=== PATIENT | female | born 1960 | race Caucasian/White ===

== ENCOUNTER 2024-01-08 11:56 | Inpatient (IN) | payer MEDICARE, SELFPAY ==
[2024-01-08] VITALS (7 sets, daily range): BP systolic 136–153; BP diastolic 70–99; PULSE 69–97; RESP 16–20; TEMP 36.3–37.1; O2SAT 93–97; BMI 36.7
[2024-01-08] MEDS: NICOTINE 14 mg PATCH 1 PATCH TRANSDERMA (13:45)
[2024-01-08] MEDS: ACETAMINOPHEN 325 MG TABLET 975 MG PO (13:45)
[2024-01-08] MEDS: cefTRIAXone 1 GM in 0.9 % SODIUM CHLORIDE Mini-bag 100 ML IVPB (13:45)
[2024-01-08] MEDS: 0.9 % SODIUM CHLORIDE 1000 ml 1,000 ML 500 ML IV (13:46)
--- NOTE | 2024-01-08 14:22 | PC.NURSE ---
Shift Summary: Patient arrived to floor around noon. Independent, alert and oriented. Vitals WNL. Rates lower abdominal pain 6/10, managed with positioning and PRN medication see MAR. New IV placed in right forearm, nicotine patch left upper outer arm.
[2024-01-08] MEDS: metroNIDAZOLE 500 MG/100 ML PIGGYBACK 100 MG IVPB ×2 (14:35→21:50)
[2024-01-08 14:44] LABS: Lactate* 0.9 mmol/L (0.5-1.9)
--- NOTE | 2024-01-08 14:44 | P.IMHP_ITS ---
Hospitalist- H&P: MIK History of Present Illness Date Seen: 01/08/24 Chief complaint: direct admit for perforated diverticlitis Narrative: Geetha Brambila is a 63 year old female with past medical history of COPD, ovarian cancer status post LOUANN/BSO, depression and current active smoker who presents as a direct admit from the clinic due to lower abdominal pain that started on January 04, and has been worsening. At the clinic, CT scan of abdomen and pelvis with contrast showed a contained small bowel perforation. Patient states that she does not have history of diverticulosis or any previous abdominal pain (except when she went through her ovarian cancer treatment 28 years ago). Her PCP suggested giving her magnesium citrate as at that time they felt it was constipation and or bloating. Patient states that she did not have any vomitus, she only was nauseated when she was drinking her magnesium citrate. Patient denied fever, but she had chills overnight. She denies headache, chest pain, any changes in her bowel movements away from her baseline which is more or less 1 bowel movement every day. She states that she has shortness of breath at baseline, as she is a current active smoker. Pt is hemodynamically stable, Labs from [facility] shows an elevated white blood cells at 14. Gen Sx consulted and pt is admitted for IV Antibiotics and further evaluation & management. Review of Systems Status of ROS: Reports: 10 or more systems reviewed and unremarkable except as noted in History and below Narrative: stress incontinence. [facility] Medical History (Updated 01/08/24 @ 16:17 by Carolyn Mcrae MD) Hepatic steatosis ?K76.0 - Fatty (change of) liver, not elsewhere classified (ICD-10) FH: cholecystectomy ?Z83.79 - Family history of other diseases of the digestive system (ICD-10) Stress incontinence ?N39.3 - Stress incontinence (female) (male) (ICD-10) Tobacco use disorder ?F17.200 - Nicotine dependence, unspecified, uncomplicated (ICD-10) Family history of malignant neoplasm ?Z80.9 - Family history of malignant neoplasm, unspecified (ICD-10) Depression ?F32.A - Depression, unspecified (ICD-10) Ovarian cancer ?C56.9 - Malignant neoplasm of unspecified ovary (ICD-10) COPD (chronic obstructive pulmonary disease) ?J44.9 - Chronic obstructive pulmonary disease, unspecified (ICD-10) Surgical History (Updated 01/08/24 @ 15:59 by Kathleen De Paz MD) S/P laparoscopic cholecystectomy ?Z90.49 - Acquired absence of other specified parts of digestive tract (ICD- 10) S/P LOUANN-BSO ?Z90.710 - Acquired absence of both cervix and uterus (ICD-10) ?Z90.722 - Acquired absence of ovaries, bilateral (ICD-10) ?Z90.79 - Acquired absence of other genital organ(s) (ICD-10) Social History What is your current living situation?: I presently have a place to live Problems where you live: no known problems Problems where you live details: N/A In the past 12 months, utilities in danger of being shut off: no In past 12 months, lack of transportation kept you from medical appts, meetings, work, or getting things needed for daily living: no In the past 12 mos, have been you worried that your food would run out before you had money to buy more?: never true In the past 12 mos, the food you bought just didn't last and you didn't have money to buy more?: never true Highest level of school completed/degree received: high school graduate Smoking Status: Current every day smoker What tobacco products do you use: cigarettes How often do you have a drink containing alcohol: monthly or less Alcohol type: wine and hard liquor AUDIT-C Alcohol total score: 1 Non-prescribed substance use: denies use Caffeine: Yes How often does anyone, including family, friends and others, physically hurt you : never How often does anyone, including family, friends and others, insult or talk down to you: never How often does anyone, including family, friends and others, threaten you with harm: never How often does anyone, including family, friends and others, scream or curse at you: never service: No Meds Home Medications and Allergies Home Medications ?Medication ?Instructions ?Recorded ?Confirmed ?Type albuterol 90 mcg/actuation aerosol mcg inhalation 01/08/24 History inhaler citalopram 20 mg tablet 20 mg PO DAILY 01/08/24 01/08/24 History fluticasone 500 mcg-salmeterol 50 inhalation BID 01/08/24 History mcg/dose blistr powdr for inhalation (Advair Diskus) Exam Narrative: Exam Narrative: Physical exam GENERAL: Comfortable, no acute distress. HEAD AND NECK: Atraumatic, normocephalic CARDIOVASCULAR: RRR. Normal S1, S2. No murmurs. RESPIRATORY: Diffuse wheezes B/L. Decreased air entry B/L. GASTROINTESTINAL: Not distended, tender to palpation mainly lower abdomen, no rigidity or guarding. NEUROLOGY: Alert, awake, oriented X 3. Normal speech. No focal weakness. PSYCH: Normal mood, normal affect. Const: Vital Signs, click to edit/add: Vital Signs - 24 hr 01/08/24 12:10 Temperature 98.2 F Pulse Rate [Left P ulse Oximeter] 97 Respiratory Rate 16 Blood Pressure [Le ft Arm] 153/99 H Pulse Oximetry 94 Oxygen Delivery Me thod Room Air Hospitalist - H&P: Result Imaging CT scan - abdomen: Radiologist's impression: CT of the abdomen and pelvis was performed following the administration of 100 mL Omnipaque 350. ? Comparison: None available. ? Findings: Visualized lung bases: Clear. Liver: Diffuse hepatic steatosis with a too small to characterize hypodensity along the falciform ligament and within the right hepatic lobe. Post cholec ystectomy. Mild intrahepatic and extrahepatic biliary ductal dilation. Pancreas: Unremarkable. Spleen: Mild nodular thickening of the left adrenal gland. Right adrenal gland is normal. Adrenals: Unremarkable. Kidneys: Unremarkable. No nephrolithiasis or hydronephrosis. Aorta/IVC: Moderate atherosclerotic aortic calcifications without aneurysmal dilation. Lymph nodes: No lymphadenopathy by size criteria. Bowel: Nonobstructed bowel. Bowel wall thickening and inflammatory stranding involving the sigmoid colon. There appears to be a small amount extra luminal gas along the posterior margin of the sigmoid colon (series 2 images 165-170). No organized fluid collection is identified to suggest abscess. Elsewhere, no localized inflammatory changes are seen. The appendix is not definitively visual ized. 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 Pelvis: The uterus is surgically absent. Inflammatory stranding of the sigmoid colon abuts the vaginal cuff. The bladder is decompressed.. Bones/body wall: Multilevel degenerative disc disease. ? Impression: 1. Acute sigmoid diverticulitis with small foci of extra luminal gas concerning for contained perforation. No discrete abscess is identified. 2. Post cholecystectomy. Mild intrahepatic and extrahepatic biliary ductal dilation, which may be secondary to reservoir effect status post cholecyst ectomy. Alternatively, there is a 2.3 cm intramural lipoma in the periampullary region of the duodenum, which may be resulting in mass effect. Recommend correlation with liver function tests and consider further evaluation with MRCP as indicated. 3. Hepatic steatosis. ? ? Assessment and Plan Assessment and plan (1) Acute diverticulitis: Status: Acute Assessment and Plan: -Acute sigmoid diverticulitis with small foci of extra luminal gas concerning for contained perforation. No discrete abscess is identified. -started ceftriaxone and metronidazole IV. 1 L bolus of normal saline. -ordered lactic acid. -General surgery were consulted, appreciate recommendations (2) COPD (chronic obstructive pulmonary disease): Status: Acute Assessment and Plan: Patient is an active smoker Prior examination she has diffuse wheezing bilaterally She states that she does not have history of frequent ED/hospital visits or admissions for exacerbation of her COPD. ordered DuoNebs are (3) Elevated blood pressure reading without diagnosis of hypertension: Status: Acute Assessment and Plan: Patient does not check her blood pressure at home We will monitor with the (4) Tobacco use disorder: Status: Acute Assessment and Plan: Order nicotine patch Counseled patient on quitting smoking (5) Depression: Status: Acute Assessment and Plan: On citalopram 20 mg daily (6) Stress incontinence: Status: Acute Assessment and Plan: History of total abdominal hysterectomy Not on treatment for her incontinence (7) Duodenal mass: Status: Acute Assessment and Plan: Incidental finding on her abdomen/pelvis CT. 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 Recommend correlation with liver function tests and consider further evaluation with MRCP as indicated. Ordered liver function tests, Pt will need to follow-up with MRCP as an outpatient, surgeon aware. (8) Hepatic steatosis: Status: Acute Plan As above Total Time Spent Total Time Spent: ?Today I spent 75 minutes seeing the patient, discussing the patient with clinic staff, reviewing Expanse and EPIC notes/diagnostics, discussing the care plan with our care time that includes , pharmacy, RT, Gen Sx and documenting my impressions and plan in the medical record.
[2024-01-08 14:47] LABS: Basophils Percent Auto 0.2 % (0.0-3.0); Eosinophils Percent Auto 0.7 % (0.0-7.0); Hematocrit 42.6 % (33.0-51.0); Hemoglobin* 13.9 gm/dL (12.0-16.0); Immature Granulocytes Pct Auto 0.2 %; Lymphocytes Percent Auto 13.9 % (20-44); Mean Corpuscular HGB Conc 33 gm/dL (32-36); Mean Corpuscular Hemoglobin 31 pg (26-34); Mean Corpuscular Volume 94 fL (80-100); Platelet Count* 203 K/uL (140-440); RDW Coefficient of Variation % 13.1 % (11.5-15.5); Red Blood Count 4.52 m/uL (4.00-5.20); Slide Review Reflex No; White Blood Count* 12.92 K/uL (4.50-11.00)
[2024-01-08 15:32] LABS: Albumin* 3.8 g/dL (3.3-5.0); Chloride* 103 mmol/L (96-114); Sodium* 134 mmol/L (135-149)
[2024-01-08 15:33] LABS: Potassium* 3.7 mmol/L (3.6-5.1)
[2024-01-08 15:35] LABS: Alkaline Phosphatase* 81 U/L (40-150); Anion Gap 5 mEq/L (7-15); Aspartate Amino Transferase* 21 U/L (12-35); Carbon Dioxide* 26 mmol/L (20-32); Creatinine* 0.6 mg/dL (0.5-1.5); Est. Creatinine Clearance* 48.43; Estimated Glomerular Filt Rate 100 ml/min; Total Protein* 6.7 g/dL (6.0-8.3)
[2024-01-08 15:36] LABS: Alanine Aminotransferase* 24 U/L (4-35); Blood Urea Nitrogen* 11 mg/dL (7-30); Calcium* 8.5 mg/dL (8.4-10.6); Glucose* 82 mg/dL (60-115); Lipase* 19 U/L (23-300)
[2024-01-08 15:49] LABS: C Reactive Protein* 22.7 mg/dL (0.5-1.0)
--- NOTE | 2024-01-08 15:56 | PM.GSCN ---
History of Present Illness Consult details Date Seen: 01/08/24 Consult date: 01/08/24 Narrative: 63-year-old female presented to clinic today with persistent suprapubic abdominal pain and I was asked by Loren SANCHEZ to see her in consultation. Patient states that she developed left lower quadrant/suprapubic abdominal pain 2 days ago. Four days prior to this pain she had multiple episodes of diarrhea. When the pain started, it was severe and patient came to clinic on Friday to be seen. She was thought to have constipation and was placed on MiraLax and magnesium citrate. Patient continued to have multiple stools but the pain did not resolve. She then re-presented to clinic today. Patient denies any fevers. She denied nausea or vomiting. She was passing gas. I reviewed her record at [facility]. Patient was found to have an elevated WBC of 14. An abdominal CT was obtained that showed small focus of extraluminal air adjacent to sigmoid colon consistent with contained perforated sigmoid diverticulitis. Review of Systems Narrative: General: no fevers HENT: no problems swallowing CV: no shortness of breath Resp: no cough GI: No nausea, vomiting, abdominal pain : no dysuria, no increased urinary frequency, no hematuria Skin: no new rashes Musculoskeletal: no back pain Neuro: no muscle weakness Psyche: no depression, no anxiety PFSH [facility] Medical History (Updated 01/08/24 @ 15:41 by Carolyn Mcrae MD) Stress incontinence ?N39.3 - Stress incontinence (female) (male) (ICD-10) Tobacco use disorder ?F17.200 - Nicotine dependence, unspecified, uncomplicated (ICD-10) Family history of malignant neoplasm ?Z80.9 - Family history of malignant neoplasm, unspecified (ICD-10) Depression ?F32.A - Depression, unspecified (ICD-10) Ovarian cancer ?C56.9 - Malignant neoplasm of unspecified ovary (ICD-10) COPD (chronic obstructive pulmonary disease) ?J44.9 - Chronic obstructive pulmonary disease, unspecified (ICD-10) Surgical History (Updated 01/08/24 @ 15:59 by Kathleen De Paz MD) S/P laparoscopic cholecystectomy ?Z90.49 - Acquired absence of other specified parts of digestive tract (ICD-10) S/P LOUANN-BSO ?Z90.710 - Acquired absence of both cervix and uterus (ICD-10) ?Z90.722 - Acquired absence of ovaries, bilateral (ICD-10) ?Z90.79 - Acquired absence of other genital organ(s) (ICD-10) Social History What is your current living situation?: I presently have a place to live Problems where you live: no known problems Problems where you live details: N/A In the past 12 months, utilities in danger of being shut off: no In past 12 months, lack of transportation kept you from medical appts, meetings, work, or getting things needed for daily living: no In the past 12 mos, have been you worried that your food would run out before you had money to buy more?: never true In the past 12 mos, the food you bought just didn't last and you didn't have money to buy more?: never true Highest level of school completed/degree received: high school graduate Smoking Status: Current every day smoker What tobacco products do you use: cigarettes How often do you have a drink containing alcohol: monthly or less Alcohol type: wine and hard liquor AUDIT-C Alcohol total score: 1 Non-prescribed substance use: denies use Caffeine: Yes How often does anyone, including family, friends and others, physically hurt you: never How often does anyone, including family, friends and others, insult or talk down to you: never How often does anyone, including family, friends and others, threaten you with harm: never How often does anyone, including family, friends and others, scream or curse at you: never service: No Meds Home Medications and Allergies Home Medications ?Medication ?Instructions ?Recorded ?Confirmed ?Type albuterol 90 mcg/actuation aerosol mcg inhalation 01/08/24 History inhaler citalopram 20 mg tablet 20 mg PO DAILY 01/08/24 01/08/24 History fluticasone 500 mcg-salmeterol 50 inhalation BID 01/08/24 History mcg/dose blistr powdr for inhalation (Advair Diskus) Exam Narrative: Exam Narrative: General appearance: Alert, cooperative, and in no distress Pulmonary: Chest symmetric, lungs clear bilaterally Cardiovascular Heart: Regular rate and rhythm, S1, S2, no murmurs/rubs/gallops Gastrointestinal Abdominal: soft, not distended, tender to palpation suprapubically and in bilateral lower quadrants, not tender to percussion suprapubically. Skin: Normal skin color, texture, and turgor. No rashes or lesions. Psychiatric: Alert, cooperative, normal affect. Const: Vital Signs, click to edit/add: Vital Signs - 24 hr 01/08/24 12:10 Temperature 98.2 F Pulse Rate [Left P ulse Oximeter] 97 Respiratory Rate 16 Blood Pressure [Le ft Arm] 153/99 H Pulse Oximetry 94 Oxygen Delivery Me thod Room Air Results Labs Labs: Abnormal lab results 01/08/24 Range/Units 14:26 WBC 12.92 H (4.50-11.00) K/uL Neut % (Auto) 76.0 H (42.0-72.0) % Lymph % (Auto) 13.9 L (20-44) % Neut # (Auto) 9.80 H (1.7-7.0) K/uL Johnson # (Auto) 1.20 H (0.00-0.90) K/UL Sodium 134 L (135-149) mmol/L Anion Gap 5 L (7-15) mEq/L C-Reactive Protein 22.7 H (0.5-1.0) mg/dL Lipase 19 L (23-300) U/L Diabetes panel 01/08/24 Range/Units 14:26 Sodium 134 L (135-149) mmol/L Potassium 3.7 (3.6-5.1) mmol/L Chloride 103 (96-114) mmol/L Carbon Dioxide 26 (20-32) mmol/L BUN 11 (7-30) mg/dL Creatinine 0.6 (0.5-1.5) mg/dL Glucose 82 (60-115) mg/dL Calcium 8.5 (8.4-10.6) mg/dL AST 21 (12-35) U/L ALT 24 (4-35) U/L Alkaline Phosphatase 81 (40-150) U/L Total Protein 6.7 (6.0-8.3) g/dL Albumin 3.8 (3.3-5.0) g/dL Calcium panel 01/08/24 Range/Units 14:26 Calcium 8.5 (8.4-10.6) mg/dL Albumin 3.8 (3.3-5.0) g/dL Pituitary panel 01/08/24 Range/Units 14:26 Sodium 134 L (135-149) mmol/L Potassium 3.7 (3.6-5.1) mmol/L Chloride 103 (96-114) mmol/L Carbon Dioxide 26 (20-32) mmol/L BUN 11 (7-30) mg/dL Creatinine 0.6 (0.5-1.5) mg/dL Glucose 82 (60-115) mg/dL Calcium 8.5 (8.4-10.6) mg/dL Adrenal panel 01/08/24 Range/Units 14:26 Sodium 134 L (135-149) mmol/L Potassium 3.7 (3.6-5.1) mmol/L Chloride 103 (96-114) mmol/L Carbon Dioxide 26 (20-32) mmol/L BUN 11 (7-30) mg/dL Creatinine 0.6 (0.5-1.5) mg/dL Glucose 82 (60-115) mg/dL Calcium 8.5 (8.4-10.6) mg/dL Total Bilirubin 1.0 (0.1-1.5) mg/dL AST 21 (12-35) U/L ALT 24 (4-35) U/L Alkaline Phosphatase 81 (40-150) U/L Total Protein 6.7 (6.0-8.3) g/dL Albumin 3.8 (3.3-5.0) g/dL All other labs normal. Progress Note:A&P Assessment and plan (1) Acute diverticulitis: Status: Acute Plan 63-year-old female admitted to the hospital with complicated sigmoid diverticulitis with micro perforation. I discussed with the patient her CT findings and her laboratory findings. Patient has small focus of air adjacent to sigmoid colon consistent with contained perforation. She does not have peritoneal signs and overall looks well. Will give her IV antibiotics and she can have clear liquid diet if she desires. Patient has not been eating for the past 2 days. Will trend her WBC and treat her conservatively for now. Patient was also found to have a thickening near ampulla. Patient is s/p cholecystectomy. This could be worked up as outpatient with liver function tests and MRCP.
[2024-01-08 16:43] LABS: Erythrocyte SedimentationRate* 7 mm/hr (2-20)
--- NOTE | 2024-01-08 19:54 | PC.NURSE ---
End of shift - RN took over pt care at approximately 1500. Pt alert, oriented, cooperative and pleasant. Up independently in room. Reported pain in lower abdomen as 5/10 and reported that pain level as tolerable. Managed with medication per MAR with pt reporting comfort. Tolerating clear liquid diet and fluids. Reported poor appetite for several days, but stated that she was feeling hungry today and noted that her loose stools had slowed down. Family at bedside, appears to be resting comfortably at end of shift with call light within reach.
[2024-01-08] MEDS: OXYCODONE 5 MG TABLET PO (21:11)
[2024-01-08] MEDS: SODIUM CHLORIDE 0.9 % (FLUSH) 10 ML SYRINGE 5 ML IVF (21:49)
[2024-01-09] VITALS (9 sets, daily range): BP systolic 135–181; BP diastolic 73–100; PULSE 69–79; RESP 16–20; TEMP 36.2–36.8; O2SAT 94–96
[2024-01-09] MEDS: metroNIDAZOLE 500 MG/100 ML PIGGYBACK 100 MG IVPB ×3 (05:49→21:21)
[2024-01-09] MEDS: SODIUM CHLORIDE 0.9 % (FLUSH) 10 ML SYRINGE 5 ML IVF ×3 (05:50→21:21)
--- NOTE | 2024-01-09 06:19 | PC.NURSE ---
End of shift note [id number]: Pt alert & oriented x 4 and able to make needs known. She transfers/ambulates independently in room. Previous IV to R forearm infiltrated last evening so publications writer placed new IV to L AC which is patent and SL. Pt refused ice to R arm when approached. PRN Oxycodone given last evening for c/o 8/10 abdominal pain which was effective upon followup. Pt has since been denying pain when asked. Pt continent of bladder. Urine noted to be light rashawn in color. Staff have been encouraging clear liquids po. VSS and pt has been afebrile this shift. Pt has been refusing scheduled nebulizer treatments. Call light within reach. Pt on tele with NSR noted. ?
[2024-01-09 06:25] LABS: Basophils Absolute Auto 0.02 K/uL (0.00-0.30); Basophils Percent Auto 0.2 % (0.0-3.0); Eosinophils Absolute Auto 0.12 K/uL (0.00-0.50); Eosinophils Percent Auto 1.2 % (0.0-7.0); Hematocrit 42.2 % (33.0-51.0); Hemoglobin* 13.6 gm/dL (12.0-16.0); Immature Granulocytes Abs Auto 0.02 K/uL (0.00-0.30); Immature Granulocytes Pct Auto 0.2 %; Mean Corpuscular HGB Conc 32 gm/dL (32-36); Mean Corpuscular Hemoglobin 31 pg (26-34); Mean Corpuscular Volume 95 fL (80-100); Neutrophils Percent Auto 75.4 % (42.0-72.0); Platelet Count* 209 K/uL (140-440); RDW Coefficient of Variation % 13.1 % (11.5-15.5); Red Blood Count 4.44 m/uL (4.00-5.20); White Blood Count* 10.27 K/uL (4.50-11.00)
[2024-01-09 06:39] LABS: Albumin* 3.6 g/dL (3.3-5.0); Chloride* 106 mmol/L (96-114); Sodium* 139 mmol/L (135-149)
[2024-01-09 06:41] LABS: Creatinine* 0.6 mg/dL (0.5-1.5); Est. Creatinine Clearance* 48.43; Estimated Glomerular Filt Rate 100 ml/min
[2024-01-09 06:42] LABS: Alanine Aminotransferase* 20 U/L (4-35); Alkaline Phosphatase* 78 U/L (40-150); Anion Gap 6 mEq/L (7-15); Aspartate Amino Transferase* 19 U/L (12-35); Bilirubin Total* 0.8 mg/dL (0.1-1.5); Blood Urea Nitrogen* 7 mg/dL (7-30); Carbon Dioxide* 27 mmol/L (20-32); Glucose* 92 mg/dL (60-115); Total Protein* 6.4 g/dL (6.0-8.3)
[2024-01-09 06:43] LABS: Calcium* 8.5 mg/dL (8.4-10.6)
[2024-01-09 06:54] LABS: Slide Review Reflex No
--- NOTE | 2024-01-09 08:07 | PM.IMPN1 ---
Progress Note: A&P Assessment and plan (1) Acute diverticulitis: Problem details: -Acute sigmoid diverticulitis with small foci of extra luminal gas concerning for contained perforation. No discrete abscess is identified. -Continue ceftriaxone and metronidazole IV. 1 L bolus of normal saline. -WBCs trending down, lactic acid WNL. -General surgery were consulted, no intervention. -Pt will need IV Abx for 10 days, may need HHC for IV Abx at home. Status: Acute (2) COPD (chronic obstructive pulmonary disease): Problem details: Patient is an active smoker Prior examination she has diffuse wheezing bilaterally She states that she does not have history of frequent ED/hospital visits or admissions for exacerbation of her COPD. ordered DuoNebs Status: Acute (3) Elevated blood pressure reading without diagnosis of hypertension: Problem details: Patient does not check her blood pressure at home We will monitor Status: Acute (4) Tobacco use disorder: Problem details: Order nicotine patch Counseled patient on quitting smoking Status: Chronic (5) Depression: Problem details: On citalopram 20 mg daily Status: Chronic (6) Stress incontinence: Status: Chronic Assessment and Plan: History of total abdominal hysterectomy Not on treatment for her incontinence (7) Duodenal mass: Problem details: Incidental finding on her abdomen/pelvis CT. 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 Recommend correlation with liver function tests and consider further evaluation with MRCP as indicated. liver function tests WNL, Pt will need to follow-up with MRCP as an outpatient, surgeon aware and pt is informed and understands. Status: Acute (8) Hepatic steatosis: Status: Acute Plan As above Time Spent With Patient Total time spent: Today I spent 50 minutes seeing the patient, reviewing Expanse and EPIC notes/diagnostics, discussing the care plan with our care time that includes social work, PT/OT, pharmacy, RT and documenting my impressions and plan in the medical record. Subjective Date Seen: 01/09/24 Interval history: Patient was seen and examined at bedside today. No acute events overnight. Patient states that she still have abdominal pain, No N/V . No BM as she is not tolerating diet well yet. Pt passes gas. Exam Narrative: Exam Narrative: Physical exam GENERAL: Comfortable, no acute distress. HEAD AND NECK: Atraumatic, normocephalic CARDIOVASCULAR: RRR. Normal S1, S2. No murmurs. RESPIRATORY: Diffuse wheezes B/L. Decreased air entry B/L. GASTROINTESTINAL: Not distended, tender to palpation mainly lower abdomen, no rigidity or guarding. NEUROLOGY: Alert, awake, oriented X 3. Normal speech. No focal weakness. PSYCH: Normal mood, normal affect. Const: Vital Signs, click to edit/add: Vital Signs - 24 hr 01/08/24 12:10 01/08/24 16:06 01/08/24 17:33 Temperature 98.2 F 98.3 F Pulse Rate 73 Pulse Rate [Left P ulse Oximeter] 97 73 Respiratory Rate 16 20 Blood Pressure [Le ft Arm] 153/99 H 151/79 H Blood Pressure [Ri ght Arm] Pulse Oximetry 94 96 Oxygen Delivery Me thod Room Air Room Air 01/08/24 20:13 01/08/24 23:00 01/08/24 23:02 Temperature 98.8 F Pulse Rate 73 Pulse Rate [Left P ulse Oximeter] 81 69 Respiratory Rate 20 16 Blood Pressure [Le ft Arm] 152/75 H Blood Pressure [Ri ght Arm] Pulse Oximetry 97 Oxygen Delivery Me thod Room Air 01/08/24 23:17 01/09/24 03:26 Temperature 97.3 F L 97.4 F L Pulse Rate Pulse Rate [Left P ulse Oximeter] 69 69 Respiratory Rate 16 16 Blood Pressure [Le ft Arm] Blood Pressure [Ri ght Arm] 136/70 135/83 Pulse Oximetry 93 94 Oxygen Delivery Me thod Room Air Room Air Labs Labs: Laboratory Results - last 24 hr 01/08/24 01/09/24 14:26 05:58 WBC 12.92 H 10.27 RBC 4.52 4.44 Hgb 13.9 13.6 Hct 42.6 42.2 MCV 94 95 MCH 31 31 MCHC 33 32 RDW Coeff of Nasir 13.1 13.1 Plt Count 203 209 Neut % (Auto) 76.0 H 75.4 H Lymph % (Auto) 13.9 L 13.0 L [place] % (Auto) 9.0 10.0 Eos % (Auto) 0.7 1.2 Baso % (Auto) 0.2 0.2 Neut # (Auto) 9.80 H 7.70 H Lymph # (Auto) 1.80 1.30 [place] # (Auto) 1.20 H 1.00 H Eos # (Auto) 0.10 0.12 Baso # (Auto) 0.00 0.02 Abs Immat Gran (auto) 0.00 0.02 Imm/Tot Granulo (auto) 0.2 0.2 ESR 7 Sodium 134 L 139 Potassium 3.7 4.0 Chloride 103 106 Carbon Dioxide 26 27 Anion Gap 5 L 6 L BUN 11 7 Creatinine 0.6 0.6 Estimated Creat Clear 48.43 48.43 Estimated GFR 100 100 Glucose 82 92 Lactate 0.9 Calcium 8.5 8.5 Total Bilirubin 1.0 0.8 AST 21 19 ALT 24 20 Alkaline Phosphatase 81 78 C-Reactive Protein 22.7 H Total Protein 6.7 6.4 Albumin 3.8 3.6 Lipase [address] scan - abdomen: Radiologist's impression: CT scan - abdomen: Radiologist's impression: CT of the abdomen and pelvis was performed following the administration of 100 mL Omnipaque 350. Comparison: None available. Findings: Visualized lung bases: Clear. Liver: Diffuse hepatic steatosis with a too small to characterize hypodensity along the falciform ligament and within the right hepatic lobe. Post cholecystectomy. Mild intrahepatic and extrahepatic biliary ductal dilation. Pancreas: Unremarkable. Spleen: Mild nodular thickening of the left adrenal gland. Right adrenal gland is normal. Adrenals: Unremarkable. Kidneys: Unremarkable. No nephrolithiasis or hydronephrosis. Aorta/IVC: Moderate atherosclerotic aortic calcifications without aneurysmal dilation. Lymph nodes: No lymphadenopathy by size criteria. Bowel: Nonobstructed bowel. Bowel wall thickening and inflammatory stranding involving the sigmoid colon. There appears to be a small amount extra luminal gas along the posterior margin of the sigmoid colon (series 2 images 165-170). No organized fluid collection is identified to suggest abscess. Elsewhere, no localized inflammatory changes are seen. The appendix is not definitively visualized. 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 Pelvis: The uterus is surgically absent. Inflammatory stranding of the sigmoid colon abuts the vaginal cuff. The bladder is decompressed.. Bones/body wall: Multilevel degenerative disc disease. Impression: 1. Acute sigmoid diverticulitis with small foci of extra luminal gas concerning for contained perforation. No discrete abscess is identified. 2. Post cholecystectomy. Mild intrahepatic and extrahepatic biliary ductal dilation, which may be secondary to reservoir effect status post cholecystectomy. Alternatively, there is a 2.3 cm intramural lipoma in the periampullary region of the duodenum, which may be resulting in mass effect. Recommend correlation with liver function tests and consider further evaluation with MRCP as indicated. 3. Hepatic steatosis.
[2024-01-09] MEDS: OXYCODONE 5 MG TABLET PO ×2 (08:13→12:54)
[2024-01-09] MEDS: IPRAT-ALBUT 0.5-2.5 MG/3 ML NEB 1 NEB IH (08:24)
[2024-01-09] MEDS: PANTOPRAZOLE SODIUM 40 MG INJ IVP (08:24)
--- NOTE | 2024-01-09 08:47 | PM.GSPN ---
Subjective Subjective Date Seen: 01/09/24 Interval history: Patient did not sleep well last night. She complains of abdominal pain that is persistent. The pain is controlled with pain medications. Her last oxycodone was last night. Patient is passing gas. Tolerated only small amount of clears and then Had increasing in her abdominal pain. Exam Narrative: Exam Narrative: abdomen is soft, not distended, tender to palpation in the right lower quadrant and suprapubically but not in the left lower quadrant. No peritoneal signs. Const: Vital Signs, click to edit/add: Vital Signs - 24 hr 01/08/24 12:10 01/08/24 16:06 01/08/24 17:33 Temperature 98.2 F 98.3 F Pulse Rate 73 Pulse Rate [Left P ulse Oximeter] 97 73 Respiratory Rate 16 20 Blood Pressure [Le ft Arm] 153/99 H 151/79 H Blood Pressure [Ri ght Arm] Pulse Oximetry 94 96 Oxygen Delivery Me thod Room Air Room Air 01/08/24 20:13 01/08/24 23:00 01/08/24 23:02 Temperature 98.8 F Pulse Rate 73 Pulse Rate [Left P ulse Oximeter] 81 69 Respiratory Rate 20 16 Blood Pressure [Le ft Arm] 152/75 H Blood Pressure [Ri ght Arm] Pulse Oximetry 97 Oxygen Delivery Me thod Room Air 01/08/24 23:17 01/09/24 03:26 01/09/24 08:07 Temperature 97.3 F L 97.4 F L 97.1 F L Pulse Rate Pulse Rate [Left P ulse Oximeter] 69 69 75 Respiratory Rate 16 16 20 Blood Pressure [Le ft Arm] Blood Pressure [Ri ght Arm] 136/70 135/83 181/90 H Pulse Oximetry 93 94 96 Oxygen Delivery Me thod Room Air Room Air Room Air Progress Note:A&P Assessment and plan (1) Acute diverticulitis: Status: Acute Assessment and Plan: 63-year-old female admitted with complicated sigmoid diverticulitis. Patient has mildly improved on her clinical exam. Her WBC is normal. Will continue with IV antibiotics and clear liquid diet. Not ready to discharge.
[2024-01-09] MEDS: CITALOPRAM HYDROBROMIDE 20 MG TABLET PO (08:58)
--- NOTE | 2024-01-09 09:39 | NUTR.NU ---
RDN with diet education related to diverticulitis. Patient admitted for persistent suprapubic abdominal pain, found to have acute diverticulitis. This is her first time having diverticulitis, with no history of diverticulosis. Current weight 213 lb 12.8 oz; height 5ft 4in; BMI 36.7 kg/m2. Current diet clear liquids. RDN will plan on offering diet education when more appropriate and patient is tolerating at least full liquids. RDN will continue to monitor.
[2024-01-09] MEDS: cefTRIAXone 1 GM in 0.9 % SODIUM CHLORIDE Mini-bag 100 ML IVPB ×2 (12:41→13:41)
[2024-01-09] MEDS: ENOXAPARIN 40 MG/0.4 ML INJ SUBCUT (12:42)
[2024-01-09] MEDS: ACETAMINOPHEN 325 MG TABLET 975 MG PO ×2 (12:54→22:49)
[2024-01-09] MEDS: NICOTINE 14 mg PATCH 1 PATCH TRANSDERMA (14:12)
--- NOTE | 2024-01-09 15:29 | PC.SOCIAL ---
Discharge planning: Pt would like to do home infusion IV Antibiotics and maybe ready for discharge over the weekend. cut in worker met with pt and pt was open to working with [facility]. cut in worker faxed a referral to [facility] at #[phone]. cut in worker heard back from Aisha at [facility] #[phone] whom shared that they could open the pt over the weekend on either Friday or Friday and that she would be the main contact. Aisha shared that they do also take pt's insurance. Aisha at [facility] also gave the pt a call in her hospital room to discuss the [id number] cost and pt was in agreement with the cost. cut in worker explained that once the provider on duty knows which day the pt will be discharged an order for a PICC line will be placed by the provider to be done before the pt discharges from the hospital. Aisha just asked that the charge nurse on duty inform her by 11am on the day the pt is ready for discharge because she will need to call in a team from their pharmacy to make the medication. Pt will be receiving the IV Antibiotic one time a day. Aisha can also work with the pt on the PICC line removal at the end of the pt's antibiotic dosing cycle. cut in worker updated the provider on duty today and the charge nurse on duty. Social work to follow-up as needed.
--- NOTE | 2024-01-09 18:03 | PC.NURSE ---
shift note: elevated BP this afternoon (see vss history). pt asymptomatic of elevated BP. pt medicated with prn meds for abd pain with relief.
[2024-01-09] MEDS: 0.9 % SODIUM CHLORIDE 250 ml IV (21:21)
--- NOTE | 2024-01-10 | CRLHL7_ITS ---
For Patients: As a result of the Cures Act, medical imaging exams and procedure reports are released immediately into your electronic medical record. You may view this report before your referring provider. If you have questions, please contact your health care provider. INDICATION: Line placement. TECHNIQUE: AP portable semi upright chest x-ray. FINDINGS: Right PICC line with its tip in these low superior vena cava in good position. Clear lungs. Normal heart size. Mild eventration of the right hemidiaphragm. Old postsurgical/posttraumatic change of the proximal right humerus. IMPRESSION: Right PICC line with its tip in the low superior vena cava. Dictated by Yosvany Yuan MD @ 01/10/2024 10:23:00 AM (Electronically Signed)
[2024-01-10 02:54] VITALS: BP 141/97; PULSE 68; RESP 16; TEMP 36.5; O2SAT 92
[2024-01-10] MEDS: metroNIDAZOLE 500 MG/100 ML PIGGYBACK 100 MG IVPB (05:29)
[2024-01-10] MEDS: SODIUM CHLORIDE 0.9 % (FLUSH) 10 ML SYRINGE 5 ML IVF ×3 (05:30→21:14)
--- NOTE | 2024-01-10 06:41 | PC.NURSE ---
Shift note: Pain in lower abdomen treated per eMAR with relief, pt fredo to rest overnight. She is independent in the room, voiding, afebrile, no adverse reactions noted to antibiotic infusions, no other complains verbalized by pt.
[2024-01-10 07:00] VITALS: PULSE 63; RESP 18
[2024-01-10 08:00] VITALS: BP 134/91; PULSE 63; RESP 18; TEMP 36.4; O2SAT 95
[2024-01-10] MEDS: ACETAMINOPHEN 325 MG TABLET 975 MG PO ×2 (08:38→18:52)
[2024-01-10] MEDS: CITALOPRAM HYDROBROMIDE 20 MG TABLET PO (08:41)
[2024-01-10] MEDS: metroNIDAZOLE 500 MG TABLET PO (10:29)
[2024-01-10] MEDS: ENOXAPARIN 40 MG/0.4 ML INJ SUBCUT (10:29)
[2024-01-10] MEDS: cefTRIAXone 2 GM in 0.9 % SODIUM CHLORIDE Mini-bag 100 ML IVPB (10:54)
--- NOTE | 2024-01-10 11:32 | P.GSPN_ITS ---
Subjective Subjective Date Seen: 01/10/24 Interval history: Patient is doing okay. She ate eggs and banana for breakfast and does not feel well?. She complains of crampy abdominal pain after eating. She is passing gas, denies nausea or vomiting. Exam Narrative: Exam Narrative: Abdomen is soft, not distended, mildly tender to palpation suprapubically and in epigastrium, no peritoneal signs. Const: Vital Signs, click to edit/add: Vital Signs - 24 hr 01/09/24 12:55 01/09/24 15:00 01/09/24 15:00 Temperature 98.2 F Pulse Rate 79 Pulse Rate [Left P ulse Oximeter] 74 79 Respiratory Rate 18 18 Blood Pressure [Ri ght Arm] 163/100 H Pulse Oximetry 94 Oxygen Delivery Me thod Room Air 01/09/24 15:00 01/09/24 19:54 01/09/24 22:47 Temperature 97.4 F L 98.2 F 97.9 F Pulse Rate Pulse Rate [Left P ulse Oximeter] 79 74 71 Respiratory Rate 18 16 16 Blood Pressure [Ri ght Arm] 142/80 H 149/86 H 148/73 H Pulse Oximetry 94 96 95 Oxygen Delivery Me thod Room Air Room Air 01/09/24 22:52 01/09/24 22:55 01/10/24 02:54 Temperature 97.7 F Pulse Rate 70 Pulse Rate [Left P ulse Oximeter] 68 Respiratory Rate 16 16 Blood Pressure [Ri ght Arm] 141/97 H Pulse Oximetry 92 Oxygen Delivery Me thod Room Air 01/10/24 08:00 Temperature 97.6 F Pulse Rate Pulse Rate [Left P ulse Oximeter] 63 Respiratory Rate 18 Blood Pressure [Ri ght Arm] 134/91 H Pulse Oximetry 95 Oxygen Delivery Me thod Room Air Progress Note:A&P Assessment and plan (1) Acute diverticulitis: Status: Acute Assessment and Plan: 63-year-old female admitted to the hospital with acute complicated diverticuli tis. I discussed with the patient that she should advance her diet slowly, patient ate majority of her breakfast today after not eating for 5 days. Patient complained of nausea and that could be due to taking Flagyl. Will switch her antibiotics to ertapenem Q 24 hours. Patient is passing gas and has a benign abdomen. Patient and her sister are very concerned about going home since she has not been doing well yet. I think it is reasonable to keep treating her with IV antibiotics after switching to ertapenem and see if she is improving.
[2024-01-10 12:11] VITALS: BP 125/112; PULSE 73; RESP 18; TEMP 36.6; O2SAT 96
[2024-01-10] MEDS: ERTAPENEM 1 GM in 0.9 % SODIUM CHLORIDE Mini-bag 100 ML IVPB (12:37)
[2024-01-10] MEDS: ONDANSETRON 2 MG/ML inj 4 MG IVP (13:52)
[2024-01-10] MEDS: NICOTINE 14 mg PATCH 1 PATCH TRANSDERMA (14:09)
--- NOTE | 2024-01-10 14:26 | PC.NURSE ---
End of Shift: Patient pleasant and cooperative, A&O. VSS, afebrile. Patient reports mild pain on her abdomen this shift, declined PRN medication. PICC placement completed today with X-ray to confirm placement. Patient had a light breakfast this morning, then reported feeling worse after eating, patient then had 2 episodes of vomiting, MD notified, managed with PRN medication, see MAR. Patient also reports she had a large loose BM this shift. Independent in room.
[2024-01-10 15:00] VITALS: BP 127/78; PULSE 70; RESP 18; TEMP 36.8; O2SAT 96
--- NOTE | 2024-01-10 15:22 | PM.IMPN1 ---
Progress Note: A&P Assessment and plan (1) Acute diverticulitis: Problem details: -Acute sigmoid diverticulitis with small foci of extra luminal gas concerning for contained perforation. No discrete abscess is identified. Switch from ceftriaxone/metronidazole to ertapenem. Metronidazole may be causing or contributing to nausea and vomiting Monitor diet and oral intake. Caution with oral intake. If persistent nausea and vomiting consider stopping oral intake. Patient at risk for abdominal ileus. Status: Acute (2) Duodenal mass: Problem details: Incidental finding on her abdomen/pelvis CT. 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 Recommend correlation with liver function tests and consider further evaluation with MRCP as indicated. liver function tests WNL, Pt will need to follow-up with MRCP as an outpatient, surgeon aware and pt is informed and understands. Status: Acute (3) Hepatic steatosis: Status: Acute (4) COPD (chronic obstructive pulmonary disease): Problem details: Patient is an active smoker Prior examination she has diffuse wheezing bilaterally She states that she does not have history of frequent ED/hospital visits or admissions for exacerbation of her COPD. ordered DuoNebs Status: Acute (5) Tobacco use disorder: Problem details: Order nicotine patch Counseled patient on quitting smoking Status: Chronic (6) Elevated blood pressure reading without diagnosis of hypertension: Problem details: Monitor and outpatient follow-up Status: Acute Plan Continue in hospital for management of perforated diverticulitis with nausea and vomiting. Total time spent today is 60 minutes in coordination of care discussing with patient and other providers ongoing inpatient and then outpatient monitoring and management Time Spent With Patient Total time spent: 60 minutes Subjective Date Seen: 01/10/24 Interval history: Geetha Brambila is a 63 year old female with past medical history of COPD, ovarian cancer status post LOUANN/BSO, depression and current active smoker who presents as a direct admit from the clinic on January 07 due to lower abdominal pain that started on January 04, and has been worsening. At the clinic, CT scan of abdomen and pelvis with contrast showed sigmoid diverticulitis with a contained perforation. Patient states that she does not have history of diverticulosis or any previous abdominal pain (except when she went through her ovarian cancer treatment 28 years ago). She was referred for hospital admission. She has been treated with ceftriaxone plus metronidazole. Surgical consult is obtained. She thinks she is getting better. She is tolerating clear liquid diet. She reports a queasy stomach but no vomiting. This morning her diet was advanced to a low residue diet and after that she did have nausea and an emesis. Initial plan was discharged today for outpatient IV antibiotics but this was delayed due to clinical worsening. Antibiotic was switched from ceftriaxone plus metronidazole to ertapenem. She has chronic COPD but no clinically worsening of her symptoms. Exam Narrative: Exam Narrative: She is alert and appears in no distress. She gives her own history. Respirations are clear to auscultation. Cardiovascular: S1, S2, regular rate and rhythm. Abdomen: Bowel sounds are present. Abdomen is soft. She has mild suprapubic tenderness. Const: Vital Signs, click to edit/add: Vital Signs - 24 hr 01/09/24 19:54 01/09/24 22:47 01/09/24 22:52 Temperature 98.2 F 97.9 F Pulse Rate 70 Pulse Rate [Left P ulse Oximeter] 74 71 Respiratory Rate 16 16 Blood Pressure [Ri ght Arm] 149/86 H 148/73 H Pulse Oximetry 96 95 Oxygen Delivery Me thod Room Air 01/09/24 22:55 01/10/24 02:54 01/10/24 07:00 Temperature 97.7 F Pulse Rate Pulse Rate [Left P ulse Oximeter] 68 63 Respiratory Rate 16 16 18 Blood Pressure [Ri ght Arm] 141/97 H Pulse Oximetry 92 Oxygen Delivery Me thod Room Air 01/10/24 08:00 01/10/24 12:11 Temperature 97.6 F 97.8 F Pulse Rate Pulse Rate [Left P ulse Oximeter] 63 73 Respiratory Rate 18 18 Blood Pressure [Ri ght Arm] 134/91 H 125/112 H Pulse Oximetry 95 96 Oxygen Delivery Me thod Room Air Room Air Documenting provider has reviewed patient's vital signs: yes
[2024-01-10] MEDS: IPRAT-ALBUT 0.5-2.5 MG/3 ML NEB 1 NEB IH (16:20)
[2024-01-10 18:53] VITALS: BP 150/89; PULSE 86; RESP 18; TEMP 37
--- NOTE | 2024-01-10 23:15 | PC.NURSE ---
Patient alert and oriented, Had a baked potato for dinner which she reported that she tolerated. No nausea, diarrhea or vomiting. PRN tylenol given for abdominal discomfort, med was effective.Declined to receive scheduled evening nebulizer. No other concerns reported by patient or noted by RN this shift. PICC line site clean dry intact and patent.
[2024-01-11 00:16] VITALS: RESP 16
[2024-01-11 00:59] VITALS: PULSE 75; RESP 16; TEMP 36.5; O2SAT 94
[2024-01-11 04:36] VITALS: RESP 18
--- NOTE | 2024-01-11 06:27 | PC.NURSE ---
End of shift [id number]: A&O pleasant and cooperative. VSS. Denies pain. Denying n/v. Pt allowed to sleep throughout night. Up at margaux in room. Using call light appropriately. ?
[2024-01-11] MEDS: ACETAMINOPHEN 325 MG TABLET 975 MG PO (07:46)
--- NOTE | 2024-01-11 08:03 | PM.GSPN ---
Subjective Subjective Date Seen: 01/11/24 Interval history: Patient had 2 episodes of vomiting yesterday but by the end of the day after her antibiotics were switched she was doing better. She continues to have some abdominal pain but that she feels it is improving. She continues to pass gas and had 2 liquid bowel movements. She ate baked potato and chicken [place] for dinner. She ate smaller amounts. Exam Narrative: Exam Narrative: Abdomen is soft, not distended, fourdrinier machine tender palpation on the right suprapubically, similar to yesterday. Const: Vital Signs, click to edit/add: Vital Signs - 24 hr 01/10/24 12:11 01/10/24 15:00 01/10/24 15:00 Temperature 97.8 F 98.2 F Pulse Rate [Left P ulse Oximeter] 73 70 70 Respiratory Rate 18 18 Blood Pressure [Le ft Arm] 127/78 Blood Pressure [Ri ght Arm] 125/112 H Pulse Oximetry 96 96 Oxygen Delivery Me thod Room Air Room Air 01/10/24 18:53 01/11/24 00:16 01/11/24 00:59 Temperature 98.6 F 97.7 F Pulse Rate [Left P ulse Oximeter] 86 75 Respiratory Rate 18 16 16 Blood Pressure [Le ft Arm] 150/89 H Blood Pressure [Ri ght Arm] Pulse Oximetry 94 Oxygen Delivery Me thod Room Air 01/11/24 04:36 Temperature Pulse Rate [Left P ulse Oximeter] Respiratory Rate 18 Blood Pressure [Le ft Arm] Blood Pressure [Ri ght Arm] Pulse Oximetry Oxygen Delivery Me thod Progress Note:A&P Assessment and plan (1) Acute diverticulitis: Status: Acute Assessment and Plan: 63-year-old female admitted to the hospital with complicated sigmoid diverticulitis. Patient seems to be doing better with ertapenem. I think it would be reasonable to discharge her home on IV ertapenem. I discussed with the patient that she can continue with regular diet but having small amounts of food throughout the day. Patient should follow up in surgery Clinic in about a week.
[2024-01-11 08:25] VITALS: BP 133/88; PULSE 71; RESP 18; TEMP 36.6; O2SAT 94
[2024-01-11 08:29] VITALS: PULSE 71; RESP 18
[2024-01-11] MEDS: CITALOPRAM HYDROBROMIDE 20 MG TABLET PO (08:40)
[2024-01-11] MEDS: SODIUM CHLORIDE 0.9 % (FLUSH) 10 ML SYRINGE 5 ML IVF (08:40)
[2024-01-11] MEDS: ENOXAPARIN 40 MG/0.4 ML INJ SUBCUT (11:03)
[2024-01-11] MEDS: ERTAPENEM 1 GM in 0.9 % SODIUM CHLORIDE Mini-bag 100 ML IVPB (11:12)
[2024-01-11] MEDS: 0.9 % SODIUM CHLORIDE 250 ml IV (11:12)
--- NOTE | 2024-01-11 12:11 | P.DS_ITS ---
DS: Providers Provider Date Seen: 01/11/24 Date of admission: 01/08/24 13:13 Primary care physician: Jesus Bloom MD Admitting Clinician: Carolyn Mcrae MD Attending Physician on discharge: Miguel Dixon MD Date of Discharge: 01/11/24 DS: Diagnosis Discharge Diagnosis (1) Acute diverticulitis: Status: Acute Problem details: -Acute sigmoid diverticulitis with small foci of extra luminal gas concerning for contained perforation. No discrete abscess is identified. Switch from ceftriaxone/metronidazole to ertapenem January 09. Suspected metronidazole was causing queasy stomach and nausea. Feels much better January 10. Discharge on Ertapenem (2) Duodenal mass: Status: Acute Problem details: Incidental finding on her abdomen/pelvis CT. 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 Recommend correlation with liver function tests and consider further evaluation with MRCP as indicated. liver function tests WNL, Pt will need to follow-up with MRCP as an outpatient, surgeon aware and pt is informed and understands. (3) Hepatic steatosis: Status: Acute Problem details: Outpatient from (4) COPD (chronic obstructive pulmonary disease): Status: Acute Problem details: Patient is an active smoker Lungs clear without wheezing during hospital stay. She states that she does not have history of frequent ED/hospital visits or admissions for exacerbation of her COPD. ordered DuoNebs (5) Tobacco use disorder: Status: Chronic Problem details: Order nicotine patch Counseled patient on quitting smoking DS: Summary Hospital Course Hospital Course: Geetha Brambila is a 63 year old female with past medical history of COPD, ov kalani cancer status post LOUANN/BSO, depression and current active smoker who presents as a direct admit from the clinic on January 07 due to lower abdominal pain that started on January 04, and has been worsening. At the clinic, CT scan of abdomen and pelvis with contrast showed sigmoid diverticulitis with a contained perforation. Patient states that she does not have history of diverticulosis or any previous abdominal pain (except when she went through her ovarian cancer treatment 28 years ago). She was referred for hospital admission. She has been treated with ceftriaxone plus metronidazole. Surgical consult is obtained. She thinks she is getting better. She is tolerating clear liquid diet. She reports a queasy stomach but no vomiting. This morning she did tolerate eating a regular diet. No further vomiting. Antibiotic was switched from ceftriaxone plus metronidazole to ertapenem. She has chronic COPD but no clinically worsening of her symptoms. Status at Discharge Functional status at discharge: independent ambulation Time Spent with Patient Time attestation: Total time spent providing and/or coordinating discharge services: Time spent: Greater than 30 minutes Exam Narrative: Exam Narrative: She is alert and appears in no distress. Mood and affect are bright. Breathing is unlabored. Abdomen: Bowel sounds active. Abdomen is soft without tenderness or mass. Extremities without edema. Const: Vital Signs, click to edit/add: Vital Signs - 24 hr 01/10/24 15:00 01/10/24 15:00 01/10/24 18:53 Temperature 98.2 F 98.6 F Pulse Rate [Left P ulse Oximeter] 70 70 86 Respiratory Rate 18 18 Blood Pressure [Le ft Arm] 127/78 150/89 H Pulse Oximetry 96 Oxygen Delivery Me thod Room Air 01/11/24 00:16 01/11/24 00:59 01/11/24 04:36 Temperature 97.7 F Pulse Rate [Left P ulse Oximeter] 75 Respiratory Rate 16 16 18 Blood Pressure [Le ft Arm] Pulse Oximetry 94 Oxygen Delivery Me thod Room Air 01/11/24 08:25 01/11/24 08:29 Temperature 97.9 F Pulse Rate [Left P ulse Oximeter] 71 71 Respiratory Rate 18 18 Blood Pressure [Le ft Arm] 133/88 Pulse Oximetry 94 Oxygen Delivery Me thod Room Air Documenting provider has reviewed patient's vital signs: yes Discharge Plan Discharge Disposition: Home, Self-Care Date of Admission: 01/08/24 13:13 Attending Provider on Discharge: Avtar Dixon Consulting Providers: Ericka Hopson; Cristy De Paz Ashley P Primary Care Provider: Jesus Bloom Condition: Improved Anticipated Discharge Date/Time: 01/10/24 11:00 Discharge Medications: Continued citalopram 20 mg tablet 20 mg PO DAILY fluticasone propion-salmeterol [Advair Diskus] 500-50 mcg/dose blister with device 1 inh INHALATION BID albuterol sulfate 90 mcg/actuation aero powdr breath act w/sensor 2 inh inhalation Q4H PRN Discharge Orders: Discharge Order (Routine); Ordered 01/11/24 Ordered By: Avtar Dixon Patient Education: Ertapenem (By injection), Diverticulitis (DC) Additional Instructions: [facility] will be contacting you directly to let you know what time they will be coming to your home on Friday01/12/2024. Activity Level: No Restrictions Discharge Diet: Regular and Low Fiber Diet Detail: Low-fiber diet until abdominal symptoms have resolved then high-fib er diet Follow Up Appointments: Farideh Cadena DO [Referring] - 01/21/24 1:50 pm ([email or web address] for follow up appointment. Obtain outpatient MRCP to evaluate duoden al lesion. ) Kahtleen De Paz MD [Staff Physician] - () Ree King MD [Staff Physician] - 01/20/24 1:30 pm ([facility] for follow up appointment ) Forms: [employer] Info Instructions
--- NOTE | 2024-01-11 13:56 | PC.NURSE ---
End of shift: patient pleasant and cooperative, A&O. VSS, afebrile. SpO2 maintained above 90% on RA. Patient reports pain in her abdomen and head this shift, managed with PRN medication. IV removed with tip intact. Discharge instructions provided, all questions answered. Discharged to home.
== END 2024-01-11 12:00 | disposition home or self-care (01) | DRG 392 ==
PROVIDERS: Admitting Provider Student in an Organized Health Care Education/Training Program; PCP Family Medicine; Visit Provider Student in an Organized Health Care Education/Training Program
DX: K57.80 Diverticulitis of intestine, part unspecified, with perforation and abscess without bleeding (principal); R03.0 Elevated blood-pressure reading, without diagnosis of hypertension; J44.9 Chronic obstructive pulmonary disease, unspecified; Z72.0 Tobacco use; F32.A Depression, unspecified; N39.3 Stress incontinence (female) (male); K31.9 Disease of stomach and duodenum, unspecified; K76.0 Fatty (change of) liver, not elsewhere classified; Z85.43 Personal history of malignant neoplasm of ovary; Z90.710 Acquired absence of both cervix and uterus
CPT/HCPCS: 36415; 36573; 80053; 83605; 83690; 85025; 85651; 86140; 87493; 94640; A9270; C1751; J0696; J1335; J1650; J1836; J2405; J2470; J7030; J7050; S4990

== ENCOUNTER 2024-03-08 06:33 | Outpatient (CLI) | payer MEDICARE, SELFPAY ==
--- NOTE | 2024-03-08 07:40 | W.ANESCHARGE ---
Anesthesia Charges Start Date/Time Anesthesia Start Date: 03/08/24 Anesthesia Start Time: 07:16 Stop Date/Time Anesthesia Stop Date: 03/08/24 Anesthesia Stop Time: 07:39
--- NOTE | 2024-03-08 09:24 | W.ANESCHARGE ---
Anesthesia Charges Start Date/Time Anesthesia Start Date: 03/08/24 Anesthesia Start Time: 07:16 Stop Date/Time Anesthesia Stop Date: 03/08/24 Anesthesia Stop Time: 07:39
== END 2024-03-08 06:34 | disposition home or self-care (01) ==
LOC: OP CLINIC 06:35
PROVIDERS: PCP Family Medicine; Visit Provider Internal Medicine
DX: R10.32 Left lower quadrant pain (principal); K57.30 Diverticulosis of large intestine without perforation or abscess without bleeding
CPT/HCPCS: 00811; 00812; 45378; J2704